=== PATIENT | male | born 1950 | race Caucasian/White ===

== ENCOUNTER → 2020-10-23 | Outpatient (CLI) | payer MEDICARE, SELFPAY ==
[~2020-10-23] MED LIST: ADULT LOW DOSE81 MG PO; BUDESONIDE-FO10.2 G1 INH; DICLOFENAC-MIS1 EAC2 PO; ELIQUIS5 MG PO; HUMIRA 4040 MG/0.8 SQ; HYDROCODON-ACE1 EAC6 PO; METFORMIN HCL500 MG PO; METHOCARBAMOL500 MG PO; NEURONTIN100 MG PO; PROVENTIL HFA6.7 GM INH; SOTALOL80 MG PO; VITAMIN D 40400 UNIT PO
== END ==
LOC: ECHO 09:00
DX: I48.91 Unspecified atrial fibrillation (principal); I49.5 Sick sinus syndrome; I08.1 Rheumatic disorders of both mitral and tricuspid valves; I27.20 Pulmonary hypertension, unspecified
CPT/HCPCS: ECHO; 93306

== ENCOUNTER → 2020-12-21 | Outpatient (CLI) | payer MEDICARE, SELFPAY | LOC: HEART 5 09:06 | DX: I20.9 Angina pectoris, unspecified (principal); R94.39 Abnormal result of other cardiovascular function study | CPT/HCPCS: 78452; A9502; J2785 ==

== ENCOUNTER → 2021-01-22 | Outpatient (CLI) | payer MEDICARE, SELFPAY ==
[2021-01-22 10:44] LABS: HEMOGLOBIN 11.4 gm/dl (14.0-17.5); RED BLOOD COUNT 4.02 M/UL (4.20-5.50); WHITE BLOOD COUNT 5.3 K/UL (4.5-11.0)
[2021-01-22 11:02] LABS: BUN/CREATININE RATIO 16 (0-10)
== END ==
LOC: LAB 10:16
PROVIDERS: Internal Medicine Cardiovascular Disease
DX: I20.9 Angina pectoris, unspecified (principal); I48.91 Unspecified atrial fibrillation; R06.02 Shortness of breath; R55 Syncope and collapse; R91.1 Solitary pulmonary nodule
CPT/HCPCS: 36415; 71046; 80048; 85025

== ENCOUNTER 2021-01-24 06:48 | Outpatient (CLI) | payer MEDICARE, SELFPAY ==
[~2021-01-24] VITALS: Ht 175.3 cm; Wt 68.9 kg
[2021-01-24] MEDS ORDERED: NEURONTIN100 MG PO (07:57)
[2021-01-24] MEDS ORDERED: METFORMIN HCL500 MG PO (07:58)
[2021-01-24] MEDS ORDERED: DICLOFENAC-MIS1 EAC2 PO (07:58)
[2021-01-24] MEDS ORDERED: METHOCARBAMOL500 MG PO (07:58)
[2021-01-24] MEDS ORDERED: ELIQUIS5 MG PO (07:59)
[2021-01-24] MEDS ORDERED: HYDROCODON-ACE1 EAC6 PO (07:59)
[2021-01-24] MEDS ORDERED: PROVENTIL HFA6.7 GM INH (08:00)
[2021-01-24] MEDS ORDERED: ADULT LOW DOSE81 MG PO (08:01)
[2021-01-24] MEDS ORDERED: SOTALOL80 MG PO ×2 (08:02)
[2021-01-24] MEDS ORDERED: HUMIRA 4040 MG/0.8 SQ (08:03)
[2021-01-24] MEDS ORDERED: BUDESONIDE-FO10.2 G1 INH (08:04)
[2021-01-24] MEDS ORDERED: VITAMIN D 40400 UNIT PO (08:05)
--- NOTE | 2021-01-24 19:37 | NUR ---
pt left via acls in route to [facility]. 1914 PT IN NO DISTRESS NO CHEST PAIN AT THIS TIME. FAMILY ALSO IN ROUTE.
== END 2021-01-24 19:15 | disposition other institution (70) ==
LOC: CATH 06:48 → PROG CARE 11:18 → CATH 19:15
DX: I25.119 Atherosclerotic heart disease of native coronary artery with unspecified angina pectoris (principal); I48.0 Paroxysmal atrial fibrillation; I49.5 Sick sinus syndrome; E11.9 Type 2 diabetes mellitus without complications; I10 Essential (primary) hypertension; J60 Coalworker's pneumoconiosis; Z87.891 Personal history of nicotine dependence; Z88.1 Allergy status to other antibiotic agents; Z79.4 Long term (current) use of insulin; Z20.822 Contact with and (suspected) exposure to COVID-19
CPT/HCPCS: 82962; 99152; C1769; C1894; J1644; J2250; J7030; Q9965

== ENCOUNTER 2021-02-02 15:13 | Emergency (ER) | payer MEDICARE, OTHER ==
[2021-02-02 16:51] LABS: RED BLOOD COUNT 3.38 M/UL (4.20-5.50)
[2021-02-02 17:20] LABS: BUN/CREATININE RATIO 20 (0-10)
== END 2021-02-02 19:30 | disposition home or self-care (01) ==
LOC: ER1 15:13
PROVIDERS: Physician Assistant
DX: G89.18 Other acute postprocedural pain (principal); R53.1 Weakness; R11.0 Nausea; I25.10 Atherosclerotic heart disease of native coronary artery without angina pectoris; J44.9 Chronic obstructive pulmonary disease, unspecified; Z95.1 Presence of aortocoronary bypass graft; E78.5 Hyperlipidemia, unspecified; E11.9 Type 2 diabetes mellitus without complications; I10 Essential (primary) hypertension; Z88.1 Allergy status to other antibiotic agents
CPT/HCPCS: 71045; 80053; 82550; 82553; 83874; 84484; 85025; 93005; 99285

== ENCOUNTER → 2021-08-01 | Day surgery (SDC) | payer MEDICARE ==
[~2021-08-01] MED LIST changes: +CYTOTEC 100 M100 MCG PO; +GLIPIZIDE5 MG PO; +IRON325 M1 PO; +JARDIANCE25 MG PO; +LIPITOR40 MG PO; +METOPROLOL TART25 MG PO; -NEURONTIN100 MG PO; +NEURONTIN300 MG PO; +PROTONIX 40 MG40 M1 PO; +VITAMIN B12-FO1 EACH PO; +VITAMIN C1000 MG PO; +VITAMIN D3125 MCG PO
== END | disposition home or self-care (01) ==
LOC: OR 05:33
DX: D64.9 Anemia, unspecified (principal); D12.7 Benign neoplasm of rectosigmoid junction; I25.10 Atherosclerotic heart disease of native coronary artery without angina pectoris; I48.0 Paroxysmal atrial fibrillation; E11.9 Type 2 diabetes mellitus without complications; E78.5 Hyperlipidemia, unspecified; Z95.1 Presence of aortocoronary bypass graft; Z87.891 Personal history of nicotine dependence; Z88.1 Allergy status to other antibiotic agents; Z91.041 Radiographic dye allergy status; Z79.01 Long term (current) use of anticoagulants; Z79.82 Long term (current) use of aspirin; Z79.84 Long term (current) use of oral hypoglycemic drugs; Z79.899 Other long term (current) drug therapy; Z20.822 Contact with and (suspected) exposure to COVID-19
CPT/HCPCS: 82962; J2704; J7120